=== PATIENT | female | born 2000 | race African-American/Black ===

== ENCOUNTER 2024-05-17 01:42 | Inpatient (IN) ==
[2024-05-17] MEDS ORDERED: Patient's ALLERGY Info needs ENTERED SCH (03:00)
[2024-05-17 03:10] LABS: Appearance Urine Clear (Clear); Bilirubin Urine Negative (Negative); Blood Urine Negative (Negative); Color Urine Yellow; Glucose Urine UA Negative (Negative); Ketones Urine Negative (Negative); Leukocyte Esterase Urine Negative (Negative); Nitrite Urine Negative (Negative); Protein Urine Negative (Negative); Specific Gravity Urine 1.023 (1.000-1.030); Urobilinogen Urine Negative (Negative)
[2024-05-17 03:11] LABS: Hematocrit (blood only) 37.5 % (37.0-47.0); Hemoglobin 12.1 g/dl (12.0-16.0); Mean Corpuscular Hemoglobin 28.1 pg (25.0-34.0); Mean Corpuscular Hgb Conc 32.3 g/dL (32.0-36.0); Mean Platelet Volume 9.9 fL (9.4-12.4); Platelet Count 254 K/uL (130-400); RDW Coefficient of Variation 12.4 % (11.5-14.5); RDW Standard Deviation 39.9 fL (36.4-46.3); Red Blood Count 4.31 M/uL (4.20-5.40)
[2024-05-17 03:14] LABS: Albumin Globulin Ratio 1.6 (0.9-2); Albumin Level 4.2 gm/dl (3.4-5.0); BUN Creatinine Ratio 19.5 (10-20); Bilirubin,Total 0.3 mg/dl (0.2-1.0); Calcium 9.1 mg/dl (8.6-10.3); Globulin 2.6 gm/dl (2.5-4.0); Potassium 3.8 mmol/L (3.5-5.1); Total Protein 6.8 gm/dl (6.0-8.3)
[2024-05-17 03:26] LABS: Pregnancy Test, Urine Negative (Negative)
[2024-05-17 03:29] LABS: Acetaminophen < 3 ug/ml (10-30); Salicylate < 3.0 mg/dl (3.0-30); Thyroid Stimulating Hormone 2.785 uIu/ml (0.300-4.500)
[2024-05-17 03:33] LABS: Basophils # (auto) 0.04 K/uL (0.00-0.20); Basophils % (auto) 0.4 %; Eosinophils # (auto) 0.07 K/uL (0.00-0.50); Eosinophils % (auto) 0.8 %; Immature Granulocytes # (auto) 0.01 K/uL (0.01-0.20); Immature Granulocytes % (auto) 0.1 %; Lymphocytes # (auto) 5.09 K/uL (1.20-3.40); Lymphocytes % (auto) 57.2 %; Monocytes % (auto) 4.5 %; Neutrophils # (auto) 3.29 K/uL (1.40-6.50); RBC Morphology Unremarkable
[2024-05-17 03:43] LABS: Amphetamines+Metham, Urine Neg (Neg); Barbiturates, Urine Neg (Neg); Benzodiazepine, Urine Neg (Neg); Cocaine, Urine Neg (Neg); Fentanyl, Urine Neg (Neg); MDMA (Ecstacy), Urine Neg (Neg); Marijuana, Urine Neg (Neg); Methadone, Urine Neg (Neg); Opiate, Urine Neg (Neg); Phencyclidine, Urine Neg (Neg)
--- NOTE | 2024-05-17 03:45 | Emergency Department Note ---
Impression & Plan Thought disorder admitted to [facility] ED Provider Note NAME: ELKIN GALDAMEZ AGE: 23 SEX: Female INFORMANT: Patient ED PROVIDER(S): Harini Kennedy DO CHIEF COMPLAINT: Hearing voices PLAN: Disposition: admit to [facility] MEDICAL DECISION MAKING: this is a 23-year-old female patient who presents to the emergency department explaining that she is hearing voices and they are becoming more intense. The voices are telling her to kill herself. the patient has never acted on these voices but is now ready to get help and seek treatment for a longstanding problem. Laboratory studies were drawn and a urine was obtained. The patient was medically cleared here in the emergency department. She does describe having a long family history of mental health issues. Patient was evaluated by the ED psychiatric keycase assembler and is willing to admit herself voluntarily for inpatient psychiatric care. Patient was evaluated by staff from [facility] and she will be admitted to their unit. Care/management discussed with: The ED psychiatric keycase assembler Triage Nursing notes: reviewed and agree with them. Vital Signs: reviewed and unremarkable Differential Diagnosis: thought disorder, mood disorder, drug abuse HPI: 23 year old Female arrives for evaluation of hearing voices. patient describes a longstanding history of hearing voices since she was a child. the voices have become louder and more intense and have been telling her to kill herself. She explains that she has no intentions to want to kill herself but she felt that she should get help. Patient admits that her brother was killed in 2020 and this is an acute traumatic event that has worsened her overall condition. She is asking for help at this time and would like inpatient care. PAST MEDICAL HISTORY: none, SOCIAL HISTORY: Senior at [employer], denies any drug or alcohol use HOME MEDICATIONS: none ALLERGIES: none VITALS: See Below PHYSICAL EXAMINATION: HEENT: Head - normocephalic and atraumatic. Pupils are equal, round, and reactive to light. Extraocular eye muscles are intact, and sclera are anicteric. Nose - moist nasal mucosa without discharge. Mouth - moist buccal mucosa. Oropharynx is nonerythematous and there is no tonsillar exudate or edema noted. Neck: Supple; no Cervical lymphadenopathy. Heart: Regular rate and rhythm. There is a normal S1 and S2 with no murmurs, clicks, or gallops appreciated. Lungs: Clear to auscultation bilaterally with no wheezes, rales, or rhonchi. Abdomen: Soft, completely nontender, nondistended, with good bowel sounds. There are no palpable pulsatile masses or hepatosplenomegaly. There is no guarding, rigidity, or rebound noted. Extremities: No evidence of cyanosis, clubbing, or edema. There are easily palpable peripheral pulses. Skin: warm and dry with good turgor and no rashes. Psych: Tearful at times. Denies any homicidal or suicidal thoughts. Does admit to hearing voices telling her to kill herself. Emergency department course: The patient was evaluated in room A-5. A complete history and physical was performed. Laboratory studies were drawn. Urine specimen was obtained. Patient was medically cleared here in the ER. She was evaluated by the ED psychiatric keycase assembler and is willing to admit herself voluntarily. Past Med/Surg History Problem List (Updated 05/17/24 @ 06:14 by Harini Kennedy DO) Thought disorder (Acute) Social History Smoking Status: Never smoker Preferred Language: Eritrean Communication Ability: Effective Manager [employer] Required: No Beliefs That Will Affect Care: None Feels Safe at Home: Yes Gender Identity: Female Assistive Devices: None Allergies Allergies Allergy/AdvReac Type Severity Reaction Status Date / Time No Known Allergies Allergy Unverified 05/17/24 05:38 Home Meds Home Medications Medication Instructions Recorded Confirmed No Known Home Medications 05/17/24 05/17/24 Results & Data (ED) Vital Signs Vital Signs - 24 hr 05/17/24 01:50 Temperature 36.5 C Temperature Source Oral Pulse Rate 95 H Respiratory Rate 20 Respiratory Effort / Characteristics Non-Labored Spontaneous Respiratory Depth Normal Respiratory Pattern Regular Blood Pressure 130/84 Blood Pressure Mean 99 Pulse Oximetry 100 Oxygen Delivery Method Room Air Sepsis Recent Fever Within 48 Hours No Sepsis New/Unexplained Change in Mental Status No Sepsis Action Taken by Nursing No Action Required Laboratory Data 05/17/24 02:12 05/17/24 02:12 Lab Results 05/17/24 05/17/24 05/17/24 Range/Units 02:00 02:12 03:10 WBC 8.90 (4.8-10.8) K/ul RBC 4.31 (4.20-5.40) M/uL Hgb 12.1 (12.0-16.0) g/dl Hct 37.5 (37.0-47.0) % MCV 87.0 (80.0-100.0) fL MCH 28.1 (25.0-34.0) pg MCHC 32.3 (32.0-36.0) g/dL RDW Std Deviation 39.9 (36.4-46.3) fL RDW Coeff of [place] 12.4 (11.5-14.5) % Plt Count 254 (130-400) K/uL MPV 9.9 (9.4-12.4) fL Immature Gran % (Auto) 0.1 % Neut % (Auto) 37.0 % Lymph % (Auto) 57.2 % Page % (Auto) 4.5 % Eos % (Auto) 0.8 % Baso % (Auto) 0.4 % Neut # (Auto) 3.29 (1.40-6.50) K/uL Lymph # (Auto) 5.09 H (1.20-3.40) K/uL Page # (Auto) 0.40 (0.11-0.59) K/uL Eos # (Auto) 0.07 (0.00-0.50) K/uL Baso # (Auto) 0.04 (0.00-0.20) K/uL Immature Gran # (Auto) 0.01 (0.01-0.20) K/uL RBC Morphology Unremarkable Sodium 138 (136-145) mmol/L Potassium 3.8 (3.5-5.1) mmol/L Chloride 105 (98-107) mmol/L Carbon Dioxide 26 (21-32) mmol/L Anion Gap 7 (3-11) BUN 17 (6-23) mg/dl Creatinine 0.87 (0.6-1.2) mg/dl Est Cr Clr Drug Dosing 111.0 ml/min eGFR 97.15 BUN/Creatinine Ratio 19.5 (10-20) Glucose 85 (70-99(Fasting)) mg/dl Calcium 9.1 (8.6-10.3) mg/dl Total Bilirubin 0.3 (0.2-1.0) mg/dl AST 21 (13-39) U/L ALT 10 (7-52) U/L Alkaline Phosphatase 52 (34-104) U/L Total Protein 6.8 (6.0-8.3) gm/dl Albumin 4.2 (3.4-5.0) gm/dl Globulin 2.6 (2.5-4.0) gm/dl Albumin/Globulin Ratio 1.6 (0.9-2) TSH 2.785 (0.300-4.500) uIu/ml Urine Color Yellow Urine Appearance Clear (Clear) Urine pH 6.0 (4.5-7.5) Ur Specific [place] 1.023 (1.000-1.030) Urine Protein Negative (Negative) Urine Glucose (UA) Negative (Negative) Urine Ketones Negative (Negative) Urine Blood Negative (Negative) Urine Nitrite Negative (Negative) Urine Bilirubin Negative (Negative) Urine Urobilinogen Negative (Negative) Ur Leukocyte Esterase Negative (Negative) Urine Test Negative (Negative) Salicylates < 3.0 L (3.0-30) mg/dl Urine Opiates Screen Neg (Neg) Ur Methadone, Qual Neg (Neg) Urine Fentanyl Screen Neg (Neg) Acetaminophen < 3 L (10-30) ug/ml Urine Barbiturates Neg (Neg) Ur Phencyclidine (PCP) Neg (Neg) U Amphetamin/Meth Scrn Neg (Neg) MDMA (Ecstasy) Screen Neg (Neg) U Benzodiazepines Scrn Neg (Neg) Ur Cocaine Metabolite Neg (Neg) U Marijuana (THC) Screen Neg (Neg) Ethyl Alcohol mg/dL < 10.0 (<10.0) mg/dl SARS-CoV-2, RNA, NAAT NEGATIVE (NEGATIVE) Discharge Plan Visit Data Chief Complaint: Mental Health Evaluation Stated Complaint: MENTAL HELP ED Provider: Harini Kennedy Discharge Problem: Thought disorder
[2024-05-17] MEDS ORDERED: SODIUM CHLORIDE 0.65% NA SOLN 45 ML (OCEAN) PRN (05:25)
[2024-05-17] MEDS ORDERED: ACETAMINOPHEN 325 MG TAB PO PRN (05:25)
[2024-05-17] MEDS ORDERED: MAGNESIUM HYDROXIDE SUSP 30 ML UDC PO PRN (05:25)
[2024-05-17] MEDS ORDERED: BISMUTH SUBSALICYLATE 262 MG CHEW PO PRN (05:25)
[2024-05-17] MEDS ORDERED: hydrOXYzine HCl 25 MG TAB PO PRN ×2 (05:25)
[2024-05-17] MEDS ORDERED: ALUMINUM/MAGNESIUM SUSP 30 ML UDC PO PRN (05:25)
--- NOTE | 2024-05-17 09:14 | History & Physical ---
Date of Service May 17, 2024 Impression / Recommendations Impression SELINA GALDAMEZ is a 23-year-old woman and [employer] student who currently lives in the dorms alone, has no formal psychiatric history, and was admitted on 05/17/24 04:22 on a 201 voluntary commitment for command auditory hallucinations telling her to kill herself. Diagnostically consistent with unspecified psychosis with differential including isolated auditory hallucinations 2/2 PTSD or depression or anxiety vs primary psychotic disorder (though no evidence of thought or behavioral disorganization nor delusions or other associated symptoms at this time) vs 2/2 schizotypal PD vs prodromal symptom (family history of paranoia/psychosis) vs BPAD (but no hx of hypomania/sofie). Medical cause unlikely given slow onset and prolonged duration and no evidence for neurological nor infectious nor inflammatory symptoms to suggest alternative cause. Discussed medication treatment options in detail. Discussed risks, benefits and alternatives. Patient would like to start and consented to abilify for auditory hallucinations. Reviewed side effects including but not limited to: movement (TD, NMS), cardiac (QTc prolongation), and metabolic (stroke, insulin resistance) and necessity for fasting lipid and glucose labwork and AIMS done with score of 0. Overall I spent a total of 75 minutes for this admission including review of chart records, review of labwork, direct evaluation of the patient, counseling the patient, ordering medication, risk assessment, discussion with the psychiatric liason RN and documentation in the electronic health record. (1) Auditory hallucinations: (2) Unspecified psychosis not due to a substance or known physiological condition: Plan 05/17/2024: The patient was admitted to the [facility] ([facility] unit) on q15 min checks (behavioral with suicide precautions) for safety. The patient will participate in group, recreational, and milieu therapies and will be offered additional individual and family sessions as clinically appropriate. -Start abilify 2.5mg qd -Fasting lipid panel and HbA1c and Vit D and Vit B12 level tomorrow AM Inventory Assets Strengths: supportive relationships, willing to get treatment Needs: safety and stabilization, medication adjustment, additional coping skills, increased outpatient services Suicide Risk Level Suicide Risk Level: High-Moderate (q15 min suicide checks) (command AH but ego dystonic and doesn't want to hurt herself, feels safe in the hospital, able to ask for support) Risk Factors Assessment Male: No : No Do You Have Access To A Gun?: No Health Problems: No Mental Health Diagnoses: Yes Substance Use Disorders: No Previous Attempt: No Family History of Suicide: No Previous Psychiatric Hospitalization: No Hopelessness: No Protective Factors Assessment Yazdanism Beliefs: Yes Stable Relationships: Yes Supportive Family: Yes Psychiatric History Identifying Data SELINA GALDAMEZ is a 23-year-old woman and [employer] student who currently lives in the dorms alone, has no formal psychiatric history, and was admitted on 05/17/24 04:22 on a 201 voluntary commitment for command auditory hallucinations telling her to kill herself. Chief Complaint "I was hoping a medication might be able to help". History of Present Illness Selina presents for psychiatric admission for worsening auditory hallucinations telling her to by suicide. She doesn't want to act on these thoughts but finds them increasingly distressing. She has been hearing an external voice since she was under 12 years old, which has evolved over time from making perverted comments to expressing suicidal ideation. Recently the voice has been saying "you should kill youself" or "shut the F up". She denies ever acting on these thoughts. Recently, she has been experiencing increased distress and crying as well. She endorses symptoms of auditory hallucinations, including hearing an external voice that makes derogatory and perverted comments, including sexual thoughts about hindu figures. She reports feeling distressed about experiencing these thoughts at such a young age and feeling insecure about her body image at times due to the voice's comments. Her lola has been a source of strength and comfort in dealing with these experiences. 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 She's discussed this with her professor of finance for advice who was helpful in encouraging h er that medication may offer benefit. She is not currently prescribed any psychiatric medications but acknowledges the need for additional support, possibly through medication. History of trauma with periodic flashbacks, denies night terrors nor avoidance nor hypervigilance. Psychiatric ROS notable for no current nor history of symptoms of sofie, OCD, self-harm nor eating disorder. Past Psychiatric History Previous Psych History: Current Psychiatric Diagnosis: No formal mental health dx Outpatient Services: none Previous Psych Admissions: none Do You Have Access To A Gun?: No History of Previous Suicide Attempt: No Past Medication Trials: none Past Head Trauma/Neuro History History of Concussion/Seizure: No Allergies Allergy/AdvReac Type Severity Reaction Status Date / Time kiwi Allergy Intermediate Altered Uncoded 05/17/24 13:18 Sense of Taste Home Medications Medication Instructions Recorded Confirmed Type No Known Home Medications 05/17/24 05/17/24 History Family History Family History of: Depression, Psychosis/ThoughtDisorder (maternal uncle, brother with possible paranoia, mother with paranoia ) and Other-List under Comment (mother with hoarding) Family Mental Health History Comment: Family history significant for paranoia, with her uncle, mother, and brother exhibiting concerning behaviors. Alcohol History Hx of Alcohol Use Over the Past 12 Months: No AUDIT Total Score: 0 Smoking Use Have You Smoked or Used Tobacco Products in the Last 30 Days: No Smoking Status: Never smoker Substance History Hx of Prescription Med Misuse Over the Past 12 Months: No Hx of Over the Counter Med Misuse Over the Past 12 Months: No Hx of Inhalent Misuse Over the Past 12 Months: No Hx of Organic Substance Use Over the Past 12 Months: No Hx of Illegal Substances/Street Drug Use Over Past 12 Months: No Problems as a Result of Past Substance Use: None Identified Personal History Living Arrangements: Apartment Childhood: Grew up in [place], parents are . Her father is very supportive but has struggled since her brother was killed by gun violence. Her mother is supportive but she doesn't want her to seek outside help and she struggles with hoarding which has negatively impacted their relationship. one younger siblings, five older siblings. Highest Grade Completed: Some College ([employer] senior) Employment Status: Student Marital Status: Single Number Of Children: none Beliefs That Will Affect Care: None Current Legal Problems: No Hx Legal Problems: No Hx Traumatic Life Events: Yes Patient History Social History Smoking Status: Never smoker Preferred Language: Nauruan Communication Ability: Effective Mental Retardation Nurse Required: No Beliefs That Will Affect Care: None Feels Safe at Home: Yes Gender Identity: Female Assistive Devices: None Review of Systems Review of Systems: All systems reviewed & are unremarkable except as noted in HPI & below Physical Exam Psychiatric: Orientation: alert and oriented x 3 Apperance: appropriately dressed and appropriately groomed Eye Contact: good eye contact Motor Behavior: no abnormal motor movements Speech: normal rate/rhythm/volume of speech Affect: + anxious affect Mood: + anxious mood Thought Process: goal directed thought process Thought Content: reality based without delusions; not paranoid Suicidal Thoughts: denies suicidal thoughts (but ego dystonic command via AH ), denies suicidal plan and denies suicidal intent Homicidal Thoughts: denies homicidal thoughts Hallucinations: + auditory hallucinations (command to hurt herself, says mean and derogatory things ); no visual hallucinations Cognition: recent memory grossly intact, remote memory grossly intact, attention grossly intact and language grossly intact Estimated Intelligence: consistent with education level Insight: good insight Judgment: + fair judgement Vital Signs (Past 24 Hours): Last Vital Signs Temp 36.5 C 05/17/24 05:32 Pulse 84 05/17/24 05:32 Resp 16 05/17/24 05:32 BP 105/67 05/17/24 05:32 Pulse Ox 98 05/17/24 05:32 O2 Del Method Room Air 05/17/24 05:32 Exam Statement: A physical exam was performed in the ED by Dr. Kennedy for the purposes of medical clearance. I accept that physical as correct and adequate for the purposes of the inpatient physical exam. Results & Data ([facility]) Laboratory Results Laboratory Results - last 24 hr 05/17/24 05/17/24 05/17/24 02:00 02:12 03:10 WBC 8.90 RBC 4.31 Hgb 12.1 Hct 37.5 MCV 87.0 MCH 28.1 MCHC 32.3 RDW Std Deviation 39.9 RDW Coeff of [place] 12.4 Plt Count 254 MPV 9.9 Immature Gran % (Auto) 0.1 Neut % (Auto) 37.0 Lymph % (Auto) 57.2 [place] % (Auto) 4.5 Eos % (Auto) 0.8 Baso % (Auto) 0.4 Neut # (Auto) 3.29 Lymph # (Auto) 5.09 H [place] # (Auto) 0.40 Eos # (Auto) 0.07 Baso # (Auto) 0.04 Immature Gran # (Auto) 0.01 RBC Morphology Unremarkable Sodium 138 Potassium 3.8 Chloride 105 Carbon Dioxide 26 Anion Gap 7 BUN 17 Creatinine 0.87 Est Cr Clr Drug Dosing 111.0 eGFR 97.15 BUN/Creatinine Ratio 19.5 Glucose 85 Calcium 9.1 Total Bilirubin 0.3 AST 21 ALT 10 Alkaline Phosphatase 52 Total Protein 6.8 Albumin 4.2 Globulin 2.6 Albumin/Globulin Ratio 1.6 TSH 2.785 Urine Color Yellow Urine Appearance Clear Urine pH 6.0 Ur Specific [place] 1.023 Urine Protein Negative Urine Glucose (UA) Negative Urine Ketones Negative Urine Blood Negative Urine Nitrite Negative Urine Bilirubin Negative Urine Urobilinogen Negative Ur Leukocyte Esterase Negative Urine Test Negative Salicylates < 3.0 L Urine Opiates Screen Neg Ur Methadone, Qual Neg Urine Fentanyl Screen Neg Acetaminophen < 3 L Urine Barbiturates Neg Ur Phencyclidine (PCP) Neg U Amphetamin/Meth Scrn Neg MDMA (Ecstasy) Screen Neg U Benzodiazepines Scrn Neg Ur Cocaine Metabolite Neg U Marijuana (THC) Screen Neg Ethyl Alcohol mg/dL < 10.0 SARS-CoV-2, RNA, NAAT NEGATIVE Current Inpatient Medications Current Inpatient Medications: Current Inpatient Medications Acetaminophen (Acetaminophen 325 Mg Tab) 650 mg PO Q4H PRN PRN Reason: Headache or Minor Fever Stop: 06/16/24 05:24 Al Hydrox/Mg Hydrox/Simethicone (Aluminum/Magnesium Susp 30 Ml Udc) 30 ml PO Q4H PRN PRN Reason: GI Upset Stop: 06/16/24 05:24 Bismuth Subsalicylate (Bismuth Subsalicylate 262 Mg Chew) 2 tab PO Q30M PRN PRN Reason: Loose Stool/Diarrhea Stop: 06/16/24 05:24 Hydroxyzine HCl (Hydroxyzine Hcl 25 Mg Tab) 50 mg PO HSZ PRN PRN Reason: Insomnia Stop: 06/16/24 05:24 Hydroxyzine HCl (Hydroxyzine Hcl 25 Mg Tab) 25 mg PO Q4H PRN PRN Reason: Anxiety Stop: 06/16/24 05:24 Magnesium Hydroxide (Magnesium Hydroxide Susp 30 Ml Udc) 30 ml PO DAILY PRN PRN Reason: Constipation Stop: 06/16/24 05:24 Sodium Chloride (Sodium Chloride 0.65% Na Soln 45 Ml ([place])) 1 - 2 sprays NA PRN PRN PRN Reason: Nasal Dryness/Congestion Stop: 06/16/24 05:24
[2024-05-17] MEDS: ARIPiprazole 5 MG TAB PO SCH (15:27)
[2024-05-18 09:01] LABS: Chol HDL Ratio 1.8 (0-5)
--- NOTE | 2024-05-18 09:20 | Psychiatric Progress Note ---
Date of Service May 18, 2024 Impression / Recommendations Impression ELKIN GALDAMEZ is a 23-year-old woman and [employer] student who currently lives in the dorms alone, has no formal psychiatric history, and was admitted on 05/17/24 04:22 on a 201 voluntary commitment for command auditory hallucinations telling her to kill herself. Diagnostically consistent with unspecified psychosis with differential including isolated auditory hallucinations 2/2 PTSD or depression or anxiety vs OCD with intrusive self-harm/negative/derogatory/sexual thoughts vs primary psychotic disorder (though no evidence of thought or behavioral disorganization nor delusions or other associated symptoms at this time) vs 2/2 schizotypal PD vs prodromal symptom (family history of paranoia/psychosis) vs BPAD (but no hx of hypomania/sofie). Medical cause unlikely given slow onset and prolonged duration and no evidence for neurological nor infectious nor inflammatory symptoms to suggest alternative cause. A: Mood improving, denies any voices nor intrusive thoughts today. She reflects on our conversation yesterday and wonders if what she described as an external voice is perhaps loud intrusive internal thoughts. Seems increased intensity correlates to recent stressful academic situation with subsequent catastrophizing that she might not graduate or would need to leave school. Discussed possibility of OCD presenting with intrusive thoughts of unwanted themes and would fit with age of onset. She is agreeable to completing Y-BOCS. Tolerating abilify so far. Reviewed labwork, HbA1c and lipid panel are normal. Vit D is very low, she is agreeable to starting supplementation, reviewed plan for weekly for 8 weeks and then daily at lower dose. Working on setting up outpatient providers. Overall, I spent a total of 35 minutes on this case including meeting with the patient, reviewing the chart, nursing report, multidisciplinary team meeting, orders, and documentation. 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 The patient will participate in group, recreational, and milieu therapies and will be offered additional individual and family sessions as clinically appropriate. 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, mood improving, feels safe in the hospital, able to ask for support) Risk Factors Assessment Male: No : No Do You Have Access To A Gun?: No Health Problems: No Mental Health Diagnoses: Yes Substance Use Disorders: No Previous Attempt: No Family History of Suicide: No Previous Psychiatric Hospitalization: No Hopelessness: No Protective Factors Assessment Confucianist Beliefs: Yes Stable Relationships: Yes Supportive Family: Yes Interval History Identifying Information ELKIN GALDAMEZ is a 23-year-old woman and [employer] student who currently lives in the dorms alone, has no formal psychiatric history, and was admitted on 05/17/24 04:22 on a 201 voluntary commitment for command auditory hallucinations telling her to kill herself. Chief Complaint "Maybe it's less of a voice and more intrusive thoughts". Review of Systems Sleep Information Total Hours of Sleep: 6.5 Sleep Comments: Meal Information Percent Meal Consumed - Breakfast: 0 Percent Meal Consumed - Lunch: 70 Percent Meal Consumed - Dinner: 90 Subjective Subjective Patient was seen & assessed and interval progress reviewed with treatment team nursing and social work. Attending groups, spent some time in her room reading her bible. Last evening she denied hearing voices but reported having a lot of normal thoughts. Today reflects that perhaps she does not hear an external voice but rather it feels that way at times because her intrusive internal thoughts get so "loud". 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 Today feels "good" and denies SI or voices or intrusive thoughts. No side effects from the abilify, she is finding it helpful so far. Physical Exam Psychiatric Orientation: alert and oriented x 3 Apperance: appropriately dressed and appropriately groomed Eye Contact: good eye contact Motor Behavior: no abnormal motor movements Speech: normal rate/rhythm/volume of speech Affect: + anxious affect Mood: + anxious mood Thought Process: goal directed thought process Thought Content: reality based without delusions; not paranoid Suicidal Thoughts: denies suicidal thoughts, denies suicidal plan and denies suicidal intent Homicidal Thoughts: denies homicidal thoughts Hallucinations: no auditory hallucinations and no visual hallucinations Cognition: recent memory grossly intact, remote memory grossly intact, attention grossly intact and language grossly intact Estimated Intelligence: consistent with education level Insight: good insight Judgment: + fair judgement Vital Signs (Past 24 Hours) Last Vital Signs Temp 36.3 C L 05/18/24 06:00 Pulse 76 05/18/24 06:00 Resp 16 05/18/24 06:00 BP 96/62 L 05/18/24 06:00 Pulse Ox 98 05/17/24 05:32 O2 Del Method Room Air 05/17/24 05:32 Results & Data ([facility]) Laboratory Results Laboratory Results - last 24 hr 05/18/24 08:20 Estimat Average Glucose Pending Hemoglobin A1c Pending Triglycerides 37 Cholesterol 128 LDL Cholesterol, Calc 50 VLDL Cholesterol, Calc 7 HDL Cholesterol 71 Cholesterol/HDL Ratio 1.8 Vitamin B12 Pending 25-OH Vitamin D Total Pending Current Inpatient Medications Current Inpatient Medications: Current Inpatient Medications Acetaminophen (Acetaminophen 325 Mg Tab) 650 mg PO Q4H PRN PRN Reason: Headache or Minor Fever Stop: 06/16/24 05:24 Al Hydrox/Mg Hydrox/Simethicone (Aluminum/Magnesium Susp 30 Ml Udc) 30 ml PO Q4H PRN PRN Reason: GI Upset Stop: 06/16/24 05:24 Aripiprazole (Aripiprazole 5 Mg Tab) 2.5 mg PO QAM ELIZABETH Stop: 06/16/24 13:59 Last Admin: 05/17/24 15:27 Dose: 2.5 mg Bismuth Subsalicylate (Bismuth Subsalicylate 262 Mg Chew) 2 tab PO Q30M PRN PRN Reason: Loose Stool/Diarrhea Stop: 06/16/24 05:24 Hydroxyzine HCl (Hydroxyzine Hcl 25 Mg Tab) 50 mg PO HSZ PRN PRN Reason: Insomnia Stop: 06/16/24 05:24 Hydroxyzine HCl (Hydroxyzine Hcl 25 Mg Tab) 25 mg PO Q4H PRN PRN Reason: Anxiety Stop: 06/16/24 05:24 Magnesium Hydroxide (Magnesium Hydroxide Susp 30 Ml Udc) 30 ml PO DAILY PRN PRN Reason: Constipation Stop: 06/16/24 05:24 Sodium Chloride (Sodium Chloride 0.65% Na Soln 45 Ml ([place])) 1 - 2 sprays NA PRN PRN PRN Reason: Nasal Dryness/Congestion Stop: 06/16/24 05:24 Mental Health & Subst Abuse Tx Therapist Name of Therapist: N/A Legislative Correspondent Name of Legislative Correspondent: N/A
[2024-05-18 11:00] LABS: Estimated Average Glucose 103 mg/dl; Hemoglobin A1C 5.2 % (4.5-5.6)
[2024-05-18] MEDS: CHOLECALCIFEROL 125 MCG (5,000 UNITS) TAB PO SCH (15:38)
--- NOTE | 2024-05-19 09:17 | Psychiatric Progress Note ---
Date of Service May 19, 2024 Impression / Recommendations Impression ELKIN GALDAMEZ is a 23-year-old woman and [employer] student who currently lives in the dorms alone, has no formal psychiatric history, and was admitted on 05/17/24 04:22 on a 201 voluntary commitment for command auditory hallucinations telling her to kill herself. Diagnostically consistent with unspecified psychosis with differential including isolated auditory hallucinations 2/2 PTSD or depression or anxiety vs OCD with intrusive self-harm/negative/derogatory/sexual thoughts vs primary psychotic disorder (though no evidence of thought or behavioral disorganization nor delusions or other associated symptoms at this time) vs 2/2 schizotypal PD vs prodromal symptom (family history of paranoia/psychosis) vs BPAD (but no hx of hypomania/sofie). Medical cause unlikely given slow onset and prolonged duration and no evidence for neurological nor infectious nor inflammatory symptoms to suggest alternative cause. A: Mood continues to improve, feels in control of her intrusive thoughts. Denies SI. Reviewed Y-BOCS which is notable for presence of intrusive obsessions but she rated her symptom burden as very low. Tolerating abilify well. Overall, I spent a total of 25 minutes on this case including meeting with the patient, reviewing the chart, nursing report, multidisciplinary team meeting, orders, and documentation. (1) Auditory hallucinations: (2) MARIANNA (generalized anxiety disorder): (3) Unspecified psychosis not due to a substance or known physiological condition: Plan 05/19/2024: Continue current medications and tx plan. 05/18/2024: -Y-BOCS screening -Start Vit D 3 625 mcg qweekly for 8 weeks and then reduce to 20mcg daily -Continue abilify 2.5mg qd 05/17/2024: The patient was admitted to the [facility] ([facility]) on q15 min checks (behavioral with suicide precautions) for safety. The patient will participate in group, recreational, and milieu therapies and will be offered additional individual and family sessions as clinically appropriate. 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, mood improving, denies SI, no evidence of psychosis, feels safe in the hospital, able to ask for support) Risk Factors Assessment Male: No : No Do You Have Access To A Gun?: No Health Problems: No Mental Health Diagnoses: Yes Substance Use Disorders: No Previous Attempt: No Family History of Suicide: No Previous Psychiatric Hospitalization: No Hopelessness: No Protective Factors Assessment Samaritan Beliefs: Yes Stable Relationships: Yes Supportive Family: Yes Interval History Identifying Information ELKIN GALDAMEZ is a 23-year-old woman and [employer] student who currently lives in the dorms alone, has no formal psychiatric history, and was admitted on 05/17/24 04:22 on a 201 voluntary commitment for command auditory hallucinations telling her to kill herself. Chief Complaint "I feel I have more control over my mind and thoughts". Review of Systems Sleep Information Total Hours of Sleep: 3.30 Sleep Comments: Refused offer for PRN sleep medication Meal Information Percent Meal Consumed - Breakfast: 100 Percent Meal Consumed - Lunch: 70 Percent Meal Consumed - Dinner: 100 Subjective Subjective Patient was seen & assessed and interval progress reviewed with treatment team nursing and social work. Attending groups and interacting well with peers. Reports stable mood, she denies any medication side effects except having more hiccups today. Feels she is more in control of her thoughts, able to put the intrusive thoughts "out of my mind". She feels her current dose is offering good benefit, doesn't desire further titration. Physical Exam Psychiatric Orientation: alert and oriented x 3 Apperance: appropriately dressed and appropriately groomed Eye Contact: good eye contact Motor Behavior: no abnormal motor movements Speech: normal rate/rhythm/volume of speech Affect: euthymic affect Mood: + anxious mood Thought Process: goal directed thought process Thought Content: reality based without delusions; not paranoid Suicidal Thoughts: denies suicidal thoughts, denies suicidal plan and denies suicidal intent Homicidal Thoughts: denies homicidal thoughts Hallucinations: no auditory hallucinations and no visual hallucinations Cognition: recent memory grossly intact, remote memory grossly intact, attention grossly intact and language grossly intact Estimated Intelligence: consistent with education level Insight: good insight Judgment: + fair judgement Vital Signs (Past 24 Hours) Last Vital Signs Temp 36.1 C L 05/19/24 06:00 Pulse 84 05/19/24 06:00 Resp 16 05/19/24 06:00 BP 102/68 05/19/24 06:00 Pulse Ox 98 05/17/24 05:32 O2 Del Method Room Air 05/17/24 05:32 Results & Data ([facility]) Laboratory Results Laboratory Results - last 24 hr 05/18/24 08:20 Estimat Average Glucose 103 Hemoglobin A1c 5.2 Vitamin B12 226 25-OH Vitamin D Total 10.6 L Current Inpatient Medications Current Inpatient Medications: Current Inpatient Medications Acetaminophen (Acetaminophen 325 Mg Tab) 650 mg PO Q4H PRN PRN Reason: Headache or Minor Fever Stop: 06/16/24 05:24 Al Hydrox/Mg Hydrox/Simethicone (Aluminum/Magnesium Susp 30 Ml Udc) 30 ml PO Q4H PRN PRN Reason: GI Upset Stop: 06/16/24 05:24 Aripiprazole (Aripiprazole 5 Mg Tab) 2.5 mg PO QAM ELIZABETH Stop: 06/16/24 13:59 Last Admin: 05/19/24 08:51 Dose: 2.5 mg Bismuth Subsalicylate (Bismuth Subsalicylate 262 Mg Chew) 2 tab PO Q30M PRN PRN Reason: Loose Stool/Diarrhea Stop: 06/16/24 05:24 Hydroxyzine HCl (Hydroxyzine Hcl 25 Mg Tab) 50 mg PO HSZ PRN PRN Reason: Insomnia Stop: 06/16/24 05:24 Hydroxyzine HCl (Hydroxyzine Hcl 25 Mg Tab) 25 mg PO Q4H PRN PRN Reason: Anxiety Stop: 06/16/24 05:24 Magnesium Hydroxide (Magnesium Hydroxide Susp 30 Ml Udc) 30 ml PO DAILY PRN PRN Reason: Constipation Stop: 06/16/24 05:24 Sodium Chloride (Sodium Chloride 0.65% Na Soln 45 Ml ([place])) 1 - 2 sprays NA PRN PRN PRN Reason: Nasal Dryness/Congestion Stop: 06/16/24 05:24 Vitamin D (Cholecalciferol 125 Mcg (5,000 Units) Tab) 625 mcg PO We@0900 [facility] Stop: 06/17/24 15:29 Last Admin: 05/18/24 15:38 Dose: 625 mcg Mental Health & Subst Abuse Tx Psychiatrist Name of Psychiatrist: [facility] [employer] Psychiatrist's Psychiatric Appointment Comment: Intake with therapist on 05/26, then you will see provider within 2 weeks Psychiatrist Release of Information: Obtained Therapist Name of Therapist: [facility] [employer] 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
--- NOTE | 2024-05-20 10:32 | Discharge Summary ---
Date of Service May 20, 2024 History of Present Illness Selina presents for psychiatric admission for worsening auditory hallucinations telling her to by suicide. She doesn't want to act on these thoughts but finds them increasingly distressing. She has been hearing an external voice since she was under 12 years old, which has evolved over time from making perverted comments to expressing suicidal ideation. Recently the voice has been saying "you should kill youself" or "shut the F up". She denies ever acting on these thoughts. Recently, she has been experiencing increased distress and crying as well. She endorses symptoms of auditory hallucinations, including hearing an external voice that makes derogatory and perverted comments, including sexual thoughts about temple figures. She reports feeling distressed about experiencing these thoughts at such a young age and feeling insecure about her body image at times due to the voice's comments. Her lola has been a source of strength and comfort in dealing with these experiences. 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 She's discussed this with her machine stone polisher for advice who was helpful in encouraging her that medication may offer benefit. She is not currently prescribed any psychiatric medications but acknowledges the need for additional support, possibly through medication. History of trauma with periodic flashbacks, denies night terrors nor avoidance nor hypervigilance. Psychiatric ROS notable for no current nor history of symptoms of sofie, OCD, self-harm nor eating disorder. Physical Exam Vital Signs (Past 24 Hours) Last Vital Signs Temp 36.6 C 05/20/24 06:52 Pulse 81 05/20/24 06:53 Resp 16 05/20/24 06:52 BP 102/66 05/20/24 06:53 Pulse Ox 98 05/17/24 05:32 O2 Del Method Room Air 05/17/24 05:32 Principal Diagnosis Trauma and stressor-related disorder Psychiatric Data See daily stay summary. In short, patient was engaged with the social/therapeutic milieu of the unit, safety was maintained and the patient was cooperative with care. Medication changes included initiation of abilify 2.5mg daily for unspecified psychosis/thought disorder with auditory hallucinations vs OCD intrusive thoughts vs off-label for trauma stressor-related disorder and Vit D supplementation for deficiency (see labwork below) and she tolerated this well. Baseline labs of fasting glucose, fasting lipid profile, and weight were preformed (see labwork results below). Recommend repeat weight in one month. Recommend repeat fasting glucose, HbA1c and fasting lipid profile every 12 weeks and then annually. If symptoms arise recommend checking BP, EKG, prolactin level as clinically indicated or relevant. Encourage ongoing diagnostic clarification in the outpatient setting, with exception of auditory hallucinations (which are not clearly defined as external voices vs internal thoughts) no other evidence for psychosis or thought disorder at this time which could be due to prodromal syndrome but also suggests possibility for alternative diagnosis such as OCD or MARIANNA or atypical PTSD with intrusive thoughts for which an SSRI trial may be more appropriate in the future. A support session was held and safety plan was completed prior to discharge. They participated in safety planning and in discussions about ways to seek support and recognizing warning signs and utilizing coping skills. Reviewed ways to have their safety plan and contacts easily available should thoughts of SI re-emerge in the future. Reviewed importance of seeking emergency care should SI intensify, worsen or should they feel unsafe in the future which they agree to do. On the day of discharge stated her mood was "excited" and remained future- oriented including doing her hair, working on an academic scholarship, watching TV and relaxing and engaging in aftercare appointments for psychiatry, therapy and [employer] student care and advocacy. Day of Discharge Assessment Today the patient voices readiness for discharge. They note improvement in mood and anxiety. They deny thoughts of harm to self or others. Thoughts are organized and they are clinically improved from admission. There is no evidence of psychosis. They improved in the hospital with support and medication adjustments. They agree to take medications as prescribed and keep follow-up appointments. At the time of the discharge they are deemed to be stable and appropriate for outpatient level of care. They are not deemed to be at imminent risk of harm to self or others. They are aware of emergency and crisis services. Knows to call 911 or go to nearest emergency care center if in a crisis which cannot be handled as an outpatient. Suicide risk assessment: Acute risk is low given improvement in mood and denial of SI, lack of access to lethal means, hopefulness and improvement in psychosis/intrusive thoughts. Chronic risk is low given some non-modifiable risk factors: childhood trauma but also with protective factors including student, good social support, sense of responsibility to family and social supports, outpatient care in place, positive coping skills, positive problem solving, willingness to engage with treatment, temple beliefs and self-observation. Counseled on ways to reduce acute and chronic risk including engaging with outpatient providers, using safety plan if needed, utilizing supports, taking medication, and using coping skills. Modifiable risk factors of intrusive thoughts and command hallucinations were addressed during hospitalization through development of new coping skills, support meeting, safety planning, and medication adjustments. Discharge physical exam: See admission H&P, MSE per above and day of discharge summary. Overall, I spent a total of 35 minutes on this case including meeting with the patient, reviewing the chart, nursing report, multidisciplinary team meeting, discharge orders, anticipatory planning, safety planning, risk assessment and documentation. Transition of Care Transition Of Care Record: was reviewed with the patient Advance Directives Advance Directives Information Provided: Yes Advance Directives: No Mental Health Advance Directive: No Advance Directives on File: No Living Will: No Power of Team Member: No Advance Directives Reason:: Declines as Mental Health Visit. 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) Stable Relationships: Yes Supportive Family: Yes Discharge Data Lab Results 05/17/24 05/17/24 05/17/24 02:00 02:12 03:10 WBC 8.90 RBC 4.31 Hgb 12.1 Hct 37.5 MCV 87.0 MCH 28.1 MCHC 32.3 RDW Std Deviation 39.9 RDW Coeff of [place] 12.4 Plt Count 254 MPV 9.9 Immature Gran % (Auto) 0.1 Neut % (Auto) 37.0 Lymph % (Auto) 57.2 [place] % (Auto) 4.5 Eos % (Auto) 0.8 Baso % (Auto) 0.4 Neut # (Auto) 3.29 Lymph # (Auto) 5.09 H [place] # (Auto) 0.40 Eos # (Auto) 0.07 Baso # (Auto) 0.04 Immature Gran # (Auto) 0.01 RBC Morphology Unremarkable Sodium 138 Potassium 3.8 Chloride 105 Carbon Dioxide 26 Anion Gap 7 BUN 17 Creatinine 0.87 Est Cr Clr Drug Dosing 111.0 eGFR 97.15 BUN/Creatinine Ratio 19.5 Glucose 85 Estimat Average Glucose Hemoglobin A1c Calcium 9.1 Total Bilirubin 0.3 AST 21 ALT 10 Alkaline Phosphatase 52 Total Protein 6.8 Albumin 4.2 Globulin 2.6 Albumin/Globulin Ratio 1.6 Triglycerides Cholesterol LDL Cholesterol, Calc VLDL Cholesterol, Calc HDL Cholesterol Cholesterol/HDL Ratio Vitamin B12 25-OH Vitamin D Total TSH 2.785 Urine Color Yellow Urine Appearance Clear Urine pH 6.0 Ur Specific [place] 1.023 Urine Protein Negative Urine Glucose (UA) Negative Urine Ketones Negative Urine Blood Negative Urine Nitrite Negative Urine Bilirubin Negative Urine Urobilinogen Negative Ur Leukocyte Esterase Negative Urine Test Negative Salicylates < 3.0 L Urine Opiates Screen Neg Ur Methadone, Qual Neg Urine Fentanyl Screen Neg Acetaminophen < 3 L Urine Barbiturates Neg Ur Phencyclidine (PCP) Neg U Amphetamin/Meth Scrn Neg MDMA (Ecstasy) Screen Neg U Benzodiazepines Scrn Neg Ur Cocaine Metabolite Neg U Marijuana (THC) Screen Neg Ethyl Alcohol mg/dL < 10.0 SARS-CoV-2, RNA, NAAT NEGATIVE 05/18/24 08:20 WBC RBC Hgb Hct MCV MCH MCHC RDW Std Deviation RDW Coeff of [place] Plt Count MPV Immature Gran % (Auto) Neut % (Auto) Lymph % (Auto) [place] % (Auto) Eos % (Auto) Baso % (Auto) Neut # (Auto) Lymph # (Auto) [place] # (Auto) Eos # (Auto) Baso # (Auto) Immature Gran # (Auto) RBC Morphology Sodium Potassium Chloride Carbon Dioxide Anion Gap BUN Creatinine Est Cr Clr Drug Dosing eGFR BUN/Creatinine Ratio Glucose Estimat Average Glucose 103 Hemoglobin A1c 5.2 Calcium Total Bilirubin AST ALT Alkaline Phosphatase Total Protein Albumin Globulin Albumin/Globulin Ratio Triglycerides 37 Cholesterol 128 LDL Cholesterol, Calc 50 VLDL Cholesterol, Calc 7 HDL Cholesterol 71 Cholesterol/HDL Ratio 1.8 Vitamin B12 226 25-OH Vitamin D Total 10.6 L TSH Urine Color Urine Appearance Urine pH Ur Specific [place] Urine Protein Urine Glucose (UA) Urine Ketones Urine Blood Urine Nitrite Urine Bilirubin Urine Urobilinogen Ur Leukocyte Esterase Urine Test Salicylates Urine Opiates Screen Ur Methadone, Qual Urine Fentanyl Screen Acetaminophen Urine Barbiturates Ur Phencyclidine (PCP) U Amphetamin/Meth Scrn MDMA (Ecstasy) Screen U Benzodiazepines Scrn Ur Cocaine Metabolite U Marijuana (THC) Screen Ethyl Alcohol mg/dL SARS-CoV-2, RNA, NAAT Hospital Course (1) Auditory hallucinations: (2) MARIANNA (generalized anxiety disorder): (3) Trauma and stressor-related disorder: Plan 05/20/2024: Feels safe and ready for discharge. 05/19/2024: Continue current medications and tx plan. 05/18/2024: -Y-BOCS screening -Start Vit D 3 625 mcg qweekly for 8 weeks and then reduce to 20mcg daily -Continue abilify 2.5mg qd 05/17/2024: The patient was admitted to the [facility] ([facility] mental health unit) on q15 min checks (behavioral with suicide precautions) for safety. The patient will participate in group, recreational, and milieu therapies and will be offered additional individual and family sessions as clinically appropriate. -Start abilify 2.5mg qd -Fasting lipid panel and HbA1c and Vit D and Vit B12 level tomorrow AM Mental Health & Subst Abuse Tx Psychiatrist Name of Psychiatrist: [facility] Psychiatric Appointment Comment: Intake with therapist on 05/26, then you will see provider within 2 weeks Psychiatrist Release of Information: Obtained Therapist Name of Therapist: [facility] Date of Therapist Appointment: 05/26/24 Time of Therapist Appointment: 8:30 Therapy Appointment Comment: Intake with therapist on 05/26, then with provider within 2 weeks Senior Cognos Developer Name of Senior Cognos Developer: N/A Post Discharge Appointments Primary Care Physician Name Of Family Doctor/PCP: [facility] Other #1: Name of Aftercare Appointment: [facility] post hospitalization meeting (Student Care & Advocacy) Phone Number of Aftercare Appointment: [phone] Date of Aftercare Appointment: 05/23/24 Time of Aftercare Appointment: 3pm Aftercare Appointment Comment: Zoom link will be sent to [facility] email Discharge Plan Discharge Items Patient Disposition: Home - Self-Care Reason For Visit: AH, SI Discharge Diagnosis: Trauma and stressor-related disorder Activity: Resume your previous activity Non-emergency contact: Primary Care Provider, Psychiatrist and Therapist Call non-emergency contact if: you have any medication questions and your symptoms worsen Follow-up/Referrals: [place] [Primary Care Provider] - Diet: Regular Addtl Attending Provider Instructions: Optional mobile apps: -Suicide safety plan -Virtual Hope Box SPECIAL CARE INSTRUCTIONS: 1. Follow through with your scheduled aftercare appointments. If unable to keep an appointment, please call to reschedule. 2. Take your medication only as prescribed. Medication should not be changed or stopped without the approval of your doctor. In the event of worsening symptoms or concerns about side effects, contact your doctor immediately. 3. Utilize new healthy coping skills, anger management skills, and stress management skills learned during your hospitalization. Journal feelings and process them with a support person. Identify stressors or situations that may result in relapse, deterioration or inappropriate behaviors and develop a plan to deal with those issues. 4. If your coping skills are ineffective and you are in crisis, contact your outpatient providers for direction. If unable to reach your providers, please call the [facility] CRISIS LINE AT , go to the [facility] walk-in center at [address] [place] [address] [address], [place], or go to the closest Emergency Room. 5. Avoid alcohol and un-prescribed drugs. 6. You have been provided with the Mental Health Advance Directives Pamphlet for your review. 7. Your condition is stable for discharge to outpatient level of care, but recovery is an ongoing process. Ifthoughts to harm yourself or others return, follow the safety plan developed during your stay. Planning for a safe return home includes securing weapons. Our treatment team recommends weaponsbe removed from the home until your outpatient provider reassesses your progress. In rare cases where the items themselvescannot be removed, guns and ammunitionshould be secured separatelyand keys stored by a reliable personoutside of the home. If you were admitted on an involuntary commitment, the police or other legal authorities may be involved in this process. AFTERCARE APPOINTMENTS: * Please call your insurance company prior to your scheduled appointment to confirm your aftercare providers are covered. Take your insurance information to your appointments. WHO TO CALL AND WHEN: Medical Emergencies: For questions or emergencies related to your hospital stay, please contact the Inpatient Behavioral Health Unit at [phone]. A art history instructor is on-call 09/02 for the Behavioral Health Unit for emergencies At any time you feel your situation is an emergency, you may also call 911 immediately. National Crisis Hotline: 988 Pending Studies at Discharge: No Stand-Alone Forms: My [facility] Medications and DC Order Prescriptions: New aripiprazole [Abilify] 5 mg Tablet 2.5 mg PO QAM 30 Days Qty: 15 0RF cholecalciferol (vitamin D3) 125 mcg (5,000 unit) Tablet 625 mcg PO We@0900 30 Days Qty: 25 0RF Discharge Orders: Discharge Order (Routine); Ordered 05/20/24 Ordered By: Raquel Gonsalez Admission Data Admit Date/Time: 05/17/24 04:22 Attending Provider: Raquel Gonsalez Admit Provider: Raquel Gonsalez Primary Care Provider: [facility] Coding Level of Care Code 50959 D/C day mgmt > 30 min Diagnoses Auditory hallucinations R44.0 MARIANNA (generalized anxiety disorder) F41.1 Trauma and stressor-related disorder F43.9
== END 2024-05-20 11:55 | disposition home or self-care (01) | DRG 882 ==
LOC: ED 01:42 → 3S 04:22